=== PATIENT | male | born 2000 | race Caucasian/White ===

== ENCOUNTER 2022-11-26 06:38 | Observation (INO) | payer BC ==
[2022-11-26] MEDS ORDERED: Ondansetron PF 4 MG/2 ML Vial ONE (07:46)
[2022-11-26] MEDS ORDERED: Ketorolac Tromethamine 30 MG/ML VIAL ONE (07:46)
[2022-11-26 08:30] LABS: #Eosinphils 0.2 10x3/uL (0.0-0.5); #Monocytes 0.6 10x3/uL (0.0-1.1); #Neutrophils 7.6 10x3/uL (1.5-8.4); %Basophils 0.2 % (0.0-2.0); %Eosinophils 1.7 % (0.0-6.0); %Lymphocytes 6.4 % (18.0-47.0); %Monocytes 6.8 % (0.0-10.0); %Neutrophils 84.7 % (40.0-75.0); Hemoglobin 15.7 g/dL (13.5-17.5); Mean Corpuscular HGB CONC 34.8 g/dL (32.0-36.0); Mean Corpuscular Hemoglobin 28.6 pg (27.0-33.0); Mean Corpuscular Volume 82.1 fl (81.2-95.1); Mean Platelet Volume 9.6 fl (7.4-10.4); Platelet Count 217 10x3/uL (150-450); RBC Distribution Width 12.8 % (11.5-14.5); Red Blood Cell (RBC) Count 5.49 10x6/uL (4.32-5.72)
[2022-11-26 08:47] LABS: ALT (SGPT) 14 U/L (8-55); AST (SGOT) 33 U/L (5-34); Albumin 4.4 g/dL (3.5-5.0); Alkaline Phosphatase 71 U/L (40-110); Anion Gap 17 mmol/L (10-20); BUN (Urea Nitrogen) 11 mg/dL (8.9-20.6); Bilirubin, Total 1.4 mg/dL (0.2-1.2); Calc. Creatinine Clearance 0 mL/min (70-130); Calcium 9.1 mg/dL (7.8-10.44); Carbon Dioxide 23 mmol/L (22-29); Chloride 102 mmol/L (98-107); Estimated GFR 125; Globulin 2.4 g/dL (2.4-3.5); Glucose 178 mg/dL (70-105); Lipase 565 U/L (8-78); Potassium 4.2 mmol/L (3.5-5.1); Protein, Total 6.8 g/dL (6.0-8.3); Sodium 138 mmol/L (136-145)
[2022-11-26] MEDS ORDERED: Ondansetron PF 4 MG/2 ML Vial IVP PRN (09:09)
[2022-11-26] MEDS ORDERED: Senokot S 8.6-50 MG TAB PO PRN (09:09)
[2022-11-26] MEDS ORDERED: Acetaminophen 325 MG TAB PO PRN (09:09)
[2022-11-26] MEDS ORDERED: Calcium Carbonate 500 MG ChewTAB PO PRN (09:09)
[2022-11-26] MEDS ORDERED: Ondansetron ODT 4 MG TAB PO PRN (09:09)
[2022-11-26] MEDS ORDERED: Morphine 2 MG/ML VIAL SLOW IVP PRN (10:00)
[2022-11-26] MEDS ORDERED: Lisinopril 10 MG TAB ONE (11:04)
[2022-11-26] MEDS ORDERED: levETIRAcetam 500 MG TAB ONE (11:04)
[2022-11-26] MEDS ORDERED: Lisinopril 10 MG TAB PO SCH (11:30)
[2022-11-26] MEDS ORDERED: levETIRAcetam 500 MG TAB PO SCH (11:30)
[2022-11-26] MEDS: Lactated Ringer's 1,000 ML IV SCH ×3 (12:05→21:00)
[2022-11-26 18:39] VITALS: BMI 21.4
[2022-11-26] MEDS: levETIRAcetam 500 MG TAB PO SCH (21:01)
[2022-11-26] MEDS: Famotidine 20 MG TAB PO SCH (21:01)
[2022-11-27] MEDS: Lactated Ringer's 1,000 ML IV SCH ×2 (01:12→05:30)
[2022-11-27 05:57] LABS: #Eosinphils 0.2 10x3/uL (0.0-0.5); #Monocytes 0.6 10x3/uL (0.0-1.1); #Neutrophils 4.7 10x3/uL (1.5-8.4); %Basophils 0.5 % (0.0-2.0); %Eosinophils 2.6 % (0.0-6.0); %Lymphocytes 16.3 % (18.0-47.0); %Monocytes 9.1 % (0.0-10.0); %Neutrophils 71.2 % (40.0-75.0); Hemoglobin 14.8 g/dL (13.5-17.5); Mean Corpuscular HGB CONC 33.7 g/dL (32.0-36.0); Mean Corpuscular Hemoglobin 28.4 pg (27.0-33.0); Mean Corpuscular Volume 84.1 fl (81.2-95.1); Mean Platelet Volume 9.4 fl (7.4-10.4); Platelet Count 211 10x3/uL (150-450); RBC Distribution Width 12.9 % (11.5-14.5); Red Blood Cell (RBC) Count 5.22 10x6/uL (4.32-5.72); White Blood Cell (WBC) Count 6.6 10x3/uL (3.5-10.5)
[2022-11-27 06:10] LABS: ALT (SGPT) 24 U/L (8-55); AST (SGOT) 26 U/L (5-34); Albumin 3.8 g/dL (3.5-5.0); Alkaline Phosphatase 71 U/L (40-110); Anion Gap 18 mmol/L (10-20); BUN (Urea Nitrogen) 8 mg/dL (8.9-20.6); Calc. Creatinine Clearance 127 mL/min (70-130); Carbon Dioxide 25 mmol/L (22-29); Chloride 100 mmol/L (98-107); Estimated GFR 121; Globulin 2.1 g/dL (2.4-3.5); Glucose 160 mg/dL (70-105); Lipase 16 U/L (8-78); Magnesium 1.7 mg/dL (1.6-2.6); Potassium 4.5 mmol/L (3.5-5.1); Protein, Total 5.9 g/dL (6.0-8.3); Sodium 138 mmol/L (136-145)
[2022-11-27] MEDS: Famotidine 20 MG TAB PO SCH (08:41)
[2022-11-27] MEDS: levETIRAcetam 500 MG TAB PO SCH (08:41)
[2022-11-27] MEDS ORDERED: Lisinopril 10 MG TAB PO SCH (09:00)
[2022-11-27] MEDS ORDERED: Lorazepam 0.5 MG TAB PO PRN (09:16)
[2022-11-27] MEDS ORDERED: Folic Acid 1 MG TAB PO SCH (09:30)
[2022-11-27] MEDS ORDERED: Multivit, Therapeutic 1 TAB PO SCH (09:30)
[2022-11-27] MEDS ORDERED: Electrolyte Replacement Protocol 1 EACH FS SCH ×2 (09:30)
[2022-11-27] MEDS ORDERED: Thiamine HCl 200 MG/2 ML VIAL SLOW IVP SCH (09:30)
[2022-11-27 09:51] LABS: Phosphorus 3.4 mg/dL (2.3-4.7)
[2022-11-27] MEDS ORDERED: Magnesium 2 GM/50 ML(in water) 2 GM in Premix Bag 1 BAG IVPB SCH (11:00)
[2022-11-27 11:22] VITALS: BP 122/57; TEMP 98.2
[2022-11-28] MEDS ORDERED: Folic Acid 1 MG TAB PO SCH (09:00)
[2022-11-28] MEDS ORDERED: Multivit, Therapeutic 1 TAB PO SCH (09:00)
[2022-11-30] MEDS ORDERED: Thiamine 100 MG TAB PO SCH (09:00)
== END 2022-11-27 13:53 | disposition home or self-care (01) ==
LOC: SUATTDRO 06:38 → CSHERS 06:38 → CSHERHOLD 10:59 → INTOOBSV 10:59 → CSHTELE 18:39
PROVIDERS: ADMIT Internal Medicine; ATTEND Internal Medicine
DX: K85.20 Alcohol induced acute pancreatitis without necrosis or infection (principal); G40.909 Epilepsy, unspecified, not intractable, without status epilepticus; I10 Essential (primary) hypertension; E10.69 Type 1 diabetes mellitus with other specified complication; Z96.41 Presence of insulin pump (external) (internal); Z79.4 Long term (current) use of insulin; Z79.899 Other long term (current) drug therapy
CPT/HCPCS: 36416; 76705; 80053; 83690; 83735; 84100; 85025; 86140; 94760; 94762; 96361; 96374; 96375; G0378; J1885; J2405; J3411; J3475; J7120